=== PATIENT | male | born 1965 | race Caucasian/White ===

== ENCOUNTER → 2020-10-14 | Outpatient (CLI) | payer OTHER ==
[~2020-10-14] MED LIST: METO25TA91 PO; OMNIPAQUE 350 MG/ML, 150 ML BOTTLE ONE; RIVA10TA2 PO
== END | disposition home or self-care (01) ==
LOC: CFH 12:10
PROVIDERS: ATTEND Internal Medicine Cardiovascular Disease
DX: Z01.818 Encounter for other preprocedural examination (principal); I48.91 Unspecified atrial fibrillation; Z20.822 Contact with and (suspected) exposure to COVID-19
CPT/HCPCS: 71046; 75572; Q9967; U0003; U0005

== ENCOUNTER 2020-10-16 05:59 | Observation (INO) | payer OTHER ==
[~2020-10-16] VITALS: Ht 195.6 cm; Wt 108.4 kg
[2020-10-16] MEDS ORDERED: METO25TA91 PO (06:29)
[2020-10-16] MEDS ORDERED: RIVA10TA2 PO (06:29)
[2020-10-16] MEDS ORDERED: SODIUM CHLORIDE 0.9% 1,000 ML IV SCH (06:30)
[2020-10-16 06:38] VITALS: BP 139/90
[2020-10-16 06:59] LABS: BASOPHILS % (AUTO) 1 % (0-1); EOSINOPHILS % (AUTO) 2 % (1-7); LYMPHOCYTES % (AUTO) 27 % (22-44); MEAN CORPUSCULAR HEMOGLOBIN 32.4 pg (27.5-34.5); MEAN CORPUSCULAR HGB CONC 34.7 g/dL (33.2-36.2); MEAN PLATELET VOLUME 7.7 fL (7.4-10.4); MONOCYTES % (AUTO) 10 % (2-9); NEUTROPHILS % (AUTO) 60 % (42-75); PLATELET COUNT 191 x10^3/uL (130-400); RED BLOOD COUNT 4.92 x10^6/uL (4.38-5.82); RED CELL DISTRIBUTION WIDTH 13.1 % (9.4-14.8)
[2020-10-16 07:09] LABS: ALANINE AMINOTRANSFERASE 29 U/L (12-78); ALBUMIN 3.6 g/dL (3.4-5.0); ANION GAP 5 mmol/L (5-15); CALCIUM 8.6 mg/dL (8.5-10.1); CHLORIDE 112 mmol/L (98-107); CREATININE 0.88 mg/dL (0.7-1.3)
[2020-10-16 07:11] LABS: ALKALINE PHOSPHATASE 91 U/L (45-117); BILIRUBIN,TOTAL 0.6 mg/dL (0.2-1.0); TOTAL PROTEIN 7.5 g/dL (6.4-8.2)
[2020-10-16] MEDS ORDERED: FENTANYL PF 250 MCG/5ML ONE ×2 (07:15→09:18)
[2020-10-16] MEDS ORDERED: MIDAZOLAM 1 MG/ML, 2ML ONE (07:15)
[2020-10-16] MEDS ORDERED: ONDANSETRON 2MG/ML, 2ML ONE (07:39)
[2020-10-16] MEDS ORDERED: NEOSTIGMINE 1 MG/ML, 10ML ONE (07:39)
[2020-10-16] MEDS ORDERED: PROPOFOL 10 MG/ML, 20ML ONE (07:39)
[2020-10-16] MEDS ORDERED: PHENYLEPHRINE 10 MG/ML ONE (07:39)
[2020-10-16] MEDS ORDERED: SUCCINYLCHOLINE 20 MG/ML, 10ML ONE (07:39)
[2020-10-16] MEDS ORDERED: RIVAROXABAN 20 MG TABLET ONE (07:57)
[2020-10-16] MEDS ORDERED: DEXAMETHASONE 4 MG/ML, 1ML ONE ×2 (08:08)
[2020-10-16] MEDS ORDERED: LIDOCAINE 2%, 20ML ONE (08:24)
[2020-10-16] MEDS ORDERED: HEPARIN 1,000 UNITS/ML, 10ML ONE (08:35)
[2020-10-16] MEDS ORDERED: VASOPRESSIN 20 UNIT/ML, 1ML ONE (08:55)
[2020-10-16] MEDS ORDERED: ROCURONIUM 10MG/ML,5ML ONE (09:35)
[2020-10-16] MEDS ORDERED: ONDANSETRON 2MG/ML, 2ML IVPush PRN (11:00)
[2020-10-16] MEDS ORDERED: MEPERIDINE/PF 25MG/0.5ML IVPush PRN (11:00)
[2020-10-16] MEDS ORDERED: DIPHENHYDRAMINE 50 MG/ML, 1ML IVPush PRN ×2 (11:00)
[2020-10-16] MEDS ORDERED: ACETAMINOPHEN 325 MG TABLET PO PRN ×2 (11:00)
[2020-10-16] MEDS ORDERED: DIAZEPAM 5 MG/ML, 2ML IVPush PRN (11:00)
[2020-10-16] MEDS ORDERED: ALBUTEROL SULFATE 2.5 MG/3 ML NPPB PRN (11:00)
[2020-10-16] MEDS ORDERED: hydrALAzine 20 MG/ML, 1ML IV PRN (11:00)
[2020-10-16] MEDS ORDERED: MIDAZOLAM 1 MG/ML, 2ML IV PRN (11:00)
[2020-10-16] MEDS ORDERED: OXYcodone 5 MG/5 ML ORAL.SOL UDC PO PRN (11:00)
[2020-10-16] MEDS ORDERED: HYDROmorphone 1 MG/ML, 1ML INJ IVPush PRN (11:00)
[2020-10-16] MEDS ORDERED: FENTANYL PF 100 MCG/2ML IV PRN (11:00)
[2020-10-16] MEDS ORDERED: PROMETHAZINE 25 MG/ML, 1ML IVPush PRN (11:00)
[2020-10-16] MEDS ORDERED: PROMETHAZINE 12.5 MG SUPP PR PRN (11:00)
[2020-10-16] MEDS ORDERED: LABETALOL 5MG/ML, 20ML IV PRN (11:00)
[2020-10-16] MEDS ORDERED: EPHEDRINE 50 MG/ML, 1ML IVPush PRN (11:00)
[2020-10-16] MEDS: RIVAROXABAN 20 MG TABLET PO SCH (11:05)
[2020-10-16 12:42] VITALS: BP 122/86
[2020-10-16] MEDS: SOTALOL 120MG TABLET PO SCH (18:04)
[2020-10-16 19:26] VITALS: BP 143/93
[2020-10-16] MEDS: COLCHICINE 0.6 MG CAPSULE PO SCH (19:40)
[2020-10-16] MEDS: ZOLPIDEM 5MG TABLET PO PRN (22:55)
[2020-10-17 01:19] VITALS: BP 124/74
[2020-10-17] MEDS: SOTALOL 120MG TABLET PO SCH ×2 (05:35→17:46)
[2020-10-17 05:36] VITALS: BP 137/84
[2020-10-17 06:41] VITALS: BP 127/76
[2020-10-17] MEDS: RIVAROXABAN 20 MG TABLET PO SCH (08:33)
[2020-10-17] MEDS: COLCHICINE 0.6 MG CAPSULE PO SCH ×2 (08:33→20:29)
[2020-10-17 12:42] VITALS: BP 128/82
[2020-10-17 18:54] VITALS: BP 119/77
[2020-10-17] MEDS: ZOLPIDEM 5MG TABLET PO PRN (20:29)
[2020-10-18 00:34] VITALS: BP 129/73
[2020-10-18] MEDS: SOTALOL 120MG TABLET PO SCH (05:59)
[2020-10-18 08:00] VITALS: BP 124/68
[2020-10-18] MEDS: RIVAROXABAN 20 MG TABLET PO SCH (08:25)
[2020-10-18] MEDS: COLCHICINE 0.6 MG CAPSULE PO SCH (08:25)
[2020-10-18] MEDS ORDERED: RIVA20TA PO (09:31)
[2020-10-18] MEDS ORDERED: SOTA120T14 PO (09:31)
== END 2020-10-18 12:43 | disposition home or self-care (01) ==
LOC: CACL 05:59 → 5SO 10:39 → CACL 11:28
PROVIDERS: ADMIT Internal Medicine Cardiovascular Disease; ATTEND Internal Medicine Cardiovascular Disease
DX: I48.19 Other persistent atrial fibrillation (principal); D68.69 Other thrombophilia; N52.9 Male erectile dysfunction, unspecified; I51.7 Cardiomegaly; I50.1 Left ventricular failure, unspecified; F17.200 Nicotine dependence, unspecified, uncomplicated; Z79.899 Other long term (current) drug therapy
CPT/HCPCS: 36415; 80053; 85025; 93005; 93306; 93312; 93320; 93325; 93613; 93656; 93657; 93662; C1730; C1759; C1766; C1893; C1894; G0378; J0330; J1100; J1644; J2250; J2370; J2405; J2704; J2710; J3010; J3490; 85347